=== PATIENT | female | born 1955 | race Caucasian/White ===

== ENCOUNTER → 2018-05-12 | Outpatient (CLI) | payer BC ==
[~2018-05-12] MED LIST: ADVAIR 250-501 EACH; CLONAZEPAM0.5 MG PO; GABAPENTIN100 MG PO; HYDROCODON-ACE1 EAC9 PO; IMIPRAMINE PO; LORAZEPAM2 MG PO; METFORMIN HCL500 M3 PO; MIRABEGRON 50 MG; PRAVASTATIN; PROPRANOLOL HCL60 M1 PO; PROPRANOLOL PO; PROTONIX40 M2 PO; TRAZODONE HCL100 MG PO; TRIAM/HCTZ; URIBEL CAPSULE1 EACH; VENTOLIN HFA18 GM; VICTOZA 2-0.6 MG/0.1; VICTOZA PO; Z.0.LOVASTATIN40 MG PO; Z.0.MAXALT10 MG PO; Z.0.RESTASIS1 EACH OP; Z.0.SOMA350 MG PO; Z.0.SYNTHROID175 MCG PO; Z.0.XANAX0.5 MG PO; Z.0.ZANTAC150 MG PO; [UNRECOGNIZED DRUG - OTHER] PO; clonazepam; flexeril
== END ==
LOC: MAMMO 11:52
PROVIDERS: ATTEND Family Medicine
DX: Z12.31 Encounter for screening mammogram for malignant neoplasm of breast (principal)
CPT/HCPCS: 77067

== ENCOUNTER → 2019-04-30 | Outpatient (CLI) | payer BC ==
--- NOTE | 2019-04-30 17:16 | Diagnostic Imaging Report ---
MRI BRAIN WO HISTORY: Headache COMPARISON: Report from MRI of the brain dated 10/02/2016 (images not available) TECHNIQUE: Sagittal T2, axial T2, axial T1, axial T2/FLAIR, axial gradient echo (or susceptibility weighted), coronal T2/FLAIR, and axial diffusion weighted MR images of the brain were obtained without contrast. DISCUSSION: Scalp/bone marrow: Unremarkable. Brain sulci: Appropriate for patient's age. Ventricles: Normal in size and configuration. No hydrocephalus. Extra-axial spaces: No masses or fluid collections. Parenchyma: Scattered T2/FLAIR hyperintense foci throughout the supratentorial white matter are likely chronic microvascular ischemic changes. Otherwise, no mass, hemorrhage, or acute vascular insults. Vessels: Normal flow voids in major arteries and veins. Sellar/Suprasellar region: A 4 mm T2 hypointense lesion is seen in the posterior pituitary gland. Craniocervical junction: No abnormalities. Incidental findings: None. IMPRESSION: 1. No acute intracranial abnormalities. 2. Mild supratentorial chronic microvascular ischemic change. 3. Approximately 4 mm T2 hypointense lesion in the posterior pituitary gland may be due to a pars intermedia/Rathke's cleft cyst or pituitary microadenoma. Signed by: Dr. Juan C Wheeler M.D. on 04/30/2019 5:12 PM
== END ==
LOC: MRI 14:31
PROVIDERS: ATTEND Family Medicine
DX: R51 Headache (principal)
CPT/HCPCS: 70551

== ENCOUNTER → 2019-07-07 | Outpatient (CLI) | payer BC ==
--- NOTE | 2019-07-10 09:16 | Diagnostic Imaging Report ---
#[id number] - MGSCRBIL #BILATERAL DIGITAL SCREENING MAMMOGRAM WITH CAD: 07/07/2019 CLINICAL: Routine screening. Comparison is made to exams dated: 05/12/2018 mammogram, 05/07/2017 mammogram and 03/25/2017 mammogram - [facility]. Current study contains 4 films. There are scattered fibroglandular elements in both breasts. Current study was also evaluated with a Computer Aided Detection (CAD) system. There are benign calcifications in both breasts. There also is a biopsy clip in the right breast. Breast tissue asymmetry in the upper outer aspect of the left breast is stable. No significant masses, calcifications, or other findings are seen in either breast. IMPRESSION: BENIGN There is no mammographic evidence of malignancy. A 1 year screening mammogram is recommended. The patient will be notified by letter of the results. NISHA ROLON M.D. ct/penrad:07/09/2019 13:38:46 Stopper Setter: Shira OBRIEN(R)(M), [facility] letter sent: Normal Exam Mammogram BI-RADS: 2 Benign
== END ==
LOC: MAMMO 13:04
PROVIDERS: ATTEND Family Medicine
DX: Z12.31 Encounter for screening mammogram for malignant neoplasm of breast (principal)
CPT/HCPCS: 77067

== ENCOUNTER → 2020-07-18 | Outpatient (CLI) | payer BC | LOC: MAMMO 12:27 | PROVIDERS: ATTEND Family Medicine | DX: Z12.31 Encounter for screening mammogram for malignant neoplasm of breast (principal) | CPT/HCPCS: 77067 ==

== ENCOUNTER → 2022-11-02 | Outpatient (CLI) | payer BC, MEDICARE | LOC: DX 12:23 | PROVIDERS: ATTEND Family Medicine | DX: Z12.31 Encounter for screening mammogram for malignant neoplasm of breast (principal); M85.88 Other specified disorders of bone density and structure, other site; Z78.0 Asymptomatic menopausal state | CPT/HCPCS: 77067; 77080 ==

== ENCOUNTER → 2024-09-09 | Outpatient (REF) | payer MEDICARE | LOC: MAMMO 13:50 | PROVIDERS: ATTEND Family Medicine | DX: R92.1 Mammographic calcification found on diagnostic imaging of breast (principal) | CPT/HCPCS: 77066 ==